=== PATIENT | male | born 1980 | race Caucasian/White ===

== ENCOUNTER 2020-07-11 14:14 | Emergency (ER) | payer BC ==
[2020-07-11 18:19] LABS: Urine Blood Trace-intact (Negative); Urine Glucose Negative (Negative); Urine Protein Negative (Negative); Urine Specific Gravity >=1.030 (1.005-1.030)
[2020-07-11 18:35] LABS: Hematocrit 42.8 % (39.6-49.0); MPV 8.4 fL (7.6-11.3); RBC Red Blood Cell Count 4.85 M/uL (4.33-5.43)
--- NOTE | 2020-07-11 18:55 | EDPHYS ---
Physician Documentation [facility] Name: Liam Freed Jr Age: 40 yrs Sex: Male : 1980 Arrival Date: 07/11/2020 Time: 14:20 Bed 23 Private MD: ED Physician Palomo Gee HPI: 07/11 17:46 This 40 yrs old Male presents to ER via Ambulatory with complaints of Groin jmm Pain - Swelling/bruising. 17:46 The patient presents with pelvic pain. Onset: The symptoms/episode began/occurred jmm acutely, 3 day(s) ago. Modifying factors: The symptoms are alleviated by nothing, the symptoms are aggravated by nothing. Associated signs and symptoms: Pertinent positives:. This is a 40 year old male with a history of bilateral inguinal hernies that presents to the ED with complaints of bruising to his penis after intercourse. Denies injurying his erect penis. Patient is able to urinate without difficulty. Complains of soreness to the area. Bruising first developed Sunday. Patient states having intercourse again. Bruising increased to the left groin. Denies fever, vomiting, abdominal pain, or scrotal pain. . Historical: - Allergies: 15:11 No Known Allergies; ca1 - Home Meds: 15:11 None [Active]; ca1 - PMHx: 15:11 None; ca1 - PSHx: 15:11 eye surgery; Hernia repair; ca1 - Immunization history:: Client reports having NOT received the Covid vaccine. Flu vaccine is not up to date. - Social history:: Smoking status: Patient reports the use of cigarette tobacco products, smokes one pack cigarettes per day. ROS: 17:46 Constitutional: Negative for fever, chills, and weight loss, Cardiovascular: Negative jmm for chest pain, palpitations, and edema, Respiratory: Negative for shortness of breath, cough, wheezing, and pleuritic chest pain, Abdomen/GI: Negative for abdominal pain, nausea, vomiting, diarrhea, and constipation. 17:46 Skin: Positive for bruising. 17:46 All other systems are negative. Exam: 17:46 Constitutional: This is a well developed, well nourished patient who is awake, alert, jmm and in no acute distress. Head/Face: atraumatic. Eyes: EOMI, no conjunctival erythema appreciated ENT: Moist Mucus Membranes Neck: Trachea midline, Supple Chest/axilla: Normal chest wall appearance and motion. Cardiovascular: Regular rate and rhythm. No edema appreciated Respiratory: Normal respirations, no respiratory distress appreciated Abdomen/GI: Non distended, soft Back: Normal ROM 17:46 Skin: ecchymosis. 17:46 Neuro: Orientation: is normal, Mentation: is normal, Memory: is normal. 17:46 Psych: Behavior/mood is pleasant, cooperative. 18:52 Skin: ecchymosis noted to the base of the penis and the left suprapubic region. [facility] Vital Signs: 15:06 BP 121 / 80; Pulse 70; Resp 16 S; Temp 97.9(TE); Pulse Ox 98% on R/A; Weight 120.2 kg ca1 (R); Height 6 ft. 0 in. (182.88 cm) (R); Pain 2/10; 16:45 BP 116 / 76; Pulse 65; Resp 18; Pulse Ox 99% on R/A; zb 17:27 BP 114 / 76; Pulse 65; Resp 16; Pulse Ox 100% on R/A; zb 18:07 BP 124 / 81; Pulse 60; Resp 16; Pulse Ox 98% on R/A; zb 15:06 Body Mass Index 35.94 (120.20 kg, 182.88 cm) ca1 MDM: 17:56 Patient medically screened. [facility] 18:53 Data reviewed: vital signs, nurses notes. Counseling: I had a detailed discussion with [facility] the patient and/or guardian regarding: the historical points, exam findings, and any diagnostic results supporting the discharge/admit diagnosis, the need for outpatient follow up, to return to the emergency department if symptoms worsen or persist or if there are any questions or concerns that arise at home. ED course: Patient able to urinate, abdomen is soft, I do not suspect obstruction, large bleed. 07/11 17:58 Order name: CBC w/o diff; Complete Time: 18:45 [facility] 07/11 18:19 Order name: Urine Dipstick-Ancillary; Complete Time: 18:23 [facility] 07/11 17:58 Order name: Saline Lock; Complete Time: 18:14 [facility] 07/11 17:59 Order name: Urine Dipstick-Ancillary (obtain specimen); Complete Time: 18:14 [facility] Administered Medications: No medications were administered Disposition: 07/12 18:31 Co-signature as Attending Physician, Palomo Gee MD. ma2 Disposition: 07/11/20 18:54 Discharged to Home. Impression: Groin Bruise. - Condition is Stable. - Discharge Instructions: Contusion. - Medication Reconciliation Form, Thank You Letter, Antibiotic Education, Prescription Opioid Use form. - Follow up: Private Physician; When: 2 - 3 days; Reason: Recheck today's complaints, Continuance of care, Re-evaluation by your physician. Follow up: Hardy Villalta MD; When: 2 - 3 days; Reason: Recheck today's complaints, Continuance of care, Re-evaluation by your physician. Signatures: Dispatcher [employer] EDMS Toby Thomason PA PA jmm Alzahri, Mohammad, MD MD ky2 Janna Michaels RN RN ca1 Brown, Zipporah, RN RN zjamia Corrections: (The following items were deleted from the chart) 07/11 18:55 18:54 07/11/2020 18:54 Discharged to Home. Impression: Groin Bruise. Condition is jmm Stable. Forms are Medication Reconciliation Form, Thank You Letter, Antibiotic Education, Prescription Opioid Use. Follow up: Private Physician; When: 2 - 3 days; Reason: Recheck today's complaints, Continuance of care, Re-evaluation by your physician. [facility] 19:07 18:55 07/11/2020 18:54 Discharged to Home. Impression: Groin Bruise. Condition is zb Stable. Discharge Instructions: Contusion. Forms are Medication Reconciliation Form, Thank You Letter, Antibiotic Education, Prescription Opioid Use. Follow up: Private Physician; When: 2 - 3 days; Reason: Recheck today's complaints, Continuance of care, Re-evaluation by your physician. Follow up: Hardy Villalta; When: 2 - 3 days; Reason: Recheck today's complaints, Continuance of care, Re-evaluation by your physician. [facility]
--- NOTE | 2020-07-11 18:55 | ER ---
Nurse's Notes [facility] Name: Liam Freed Jr Age: 40 yrs Sex: Male : 1980 Arrival Date: 07/11/2020 Time: 14:20 Bed 23 Private MD: Diagnosis: Groin Bruise Presentation: 07/11 15:06 Chief complaint: Patient states: L groin and penile on the shaft bruise, pain, and a ca1 little swelling, noticed yesterday. I did not have any injury nor rough sex. The bruise started small, then now it is 4x the size it started. Coronavirus screen: Client denies travel out of the [place] in the last 14 days. At this time, the client does not indicate any symptoms associated with coronavirus-19. Ebola Screen: Patient negative for fever greater than or equal to 101.5 degrees Fahrenheit, and additional compatible Ebola Virus Disease symptoms Patient denies exposure to infectious person. Patient denies travel to an Ebola-affected area in the 21 days before illness onset. No symptoms or risks identified at this time. Initial Sepsis Screen: Does the patient meet any 2 criteria? No. Patient's initial sepsis screen is negative. Does the patient have a suspected source of infection? No. Patient's initial sepsis screen is negative. Risk Assessment: Do you want to hurt yourself or someone else? Patient reports no desire to harm self or others. Onset of symptoms was July 11, 2020. 15:06 Method Of Arrival: Ambulatory ca1 15:06 Acuity: BRITTNEY 3 ca1 Historical: - Allergies: 15:11 No Known Allergies; ca1 - Home Meds: 15:11 None [Active]; ca1 - PMHx: 15:11 None; ca1 - PSHx: 15:11 eye surgery; Hernia repair; ca1 - Immunization history:: Client reports having NOT received the Covid vaccine. Flu vaccine is not up to date. - Social history:: Smoking status: Patient reports the use of cigarette tobacco products, smokes one pack cigarettes per day. Screenin:30 Abuse screen: Denies threats or abuse. Denies injuries from another. Nutritional zb screening: No deficits noted. Tuberculosis screening: No symptoms or risk factors identified. Fall Risk None identified. Assessment: 17:30 General: Appears in no apparent distress. uncomfortable, Behavior is calm, cooperative, zb appropriate for age. Pain: Complains of pain in groin and suprapubic area Pain does not radiate. Pain currently is 2 out of 10 on a pain scale. Quality of pain is described as pressure, Pain began 1 day ago. Neuro: Level of Consciousness is awake, alert, Oriented to person, place, time, situation. Cardiovascular: Capillary refill < 3 seconds Patient's skin is warm and dry. Respiratory: Airway is patent Respiratory effort is even, unlabored, Respiratory pattern is regular, symmetrical. GI: No deficits noted. : bruising and swelling noted on shaft of penis and upper suprapubic area. Denies burning with urination, inability to void, incontinence, urinary frequency. EENT:. Derm: Bruising that is dark purple, on groin. Musculoskeletal: Range of motion: intact in all extremities. Vital Signs: 15:06 BP 121 / 80; Pulse 70; Resp 16 S; Temp 97.9(TE); Pulse Ox 98% on R/A; Weight 120.2 kg ca1 (R); Height 6 ft. 0 in. (182.88 cm) (R); Pain 2/10; 16:45 BP 116 / 76; Pulse 65; Resp 18; Pulse Ox 99% on R/A; zb 17:27 BP 114 / 76; Pulse 65; Resp 16; Pulse Ox 100% on R/A; zb 18:07 BP 124 / 81; Pulse 60; Resp 16; Pulse Ox 98% on R/A; zb 15:06 Body Mass Index 35.94 (120.20 kg, 182.88 cm) ca1 ED Course: 14:20 Patient arrived in ED. am2 15:10 Triage completed. ca1 15:11 Arm band placed on right wrist. ca1 17:07 Toby Thomason PA is PHCP. jmm 17:07 Palomo Gee MD is Attending Physician. [facility] 18:05 Isadora Johnson RN is Primary Nurse. zb 18:12 Patient has correct armband on for positive identification. Placed in gown. Bed in low zb position. Call light in reach. Pulse ox on. NIBP on. Door closed. Noise minimized. 18:12 Inserted saline lock: 20 gauge in right antecubital area, using aseptic technique. zb Blood collected. 18:14 Initial lab(s) drawn, by solder making laborer, sent to lab. Urine collected: clean catch specimen, zb clear. 18:55 Hardy Villalta MD is Referral Physician. mario 19:04 IV discontinued, intact, bleeding controlled, No redness/swelling at site. Pressure zb dressing applied. 19:04 No provider procedures requiring assistance completed. zb Administered Medications: No medications were administered Outcome: 18:54 Discharge ordered by . mario 19:04 Discharged to home ambulatory. zb 19:04 Condition: stable 19:04 Discharge instructions given to patient, Instructed on discharge instructions, follow up and referral plans. Demonstrated understanding of instructions, follow-up care. 19:07 Patient left the ED. jean carlos Signatures: Toby Thomason PA PA jmm Moreno, Amanda am2 Acob, Cheryl, RN RN Isadora Lange RN RN jean carlos
[2020-07-11 19:20] VITALS: TEMP 97.9
[2020-07-11 19:26] VITALS: BP 124/81; O2SAT 98
== END 2020-07-11 19:07 | disposition home or self-care (01) ==
LOC: ER 14:14
DX: S30.1XXA Contusion of abdominal wall, initial encounter (principal); F17.210 Nicotine dependence, cigarettes, uncomplicated
CPT/HCPCS: 36415; 81003; 85027; 99284